=== PATIENT | female | born 1990 | race Caucasian/White ===

== ENCOUNTER 2017-03-27 19:52 | Emergency (ER) | payer OTHER ==
[2017-03-27 20:05] VITALS: BP 115/66; PULSE 85; TEMP 97.9; BMI 38.2
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
[2017-03-27 20:22] LABS: URINE APPEARANCE CLEAR; URINE BILIRUBIN NEGATIVE (NEGATIVE); URINE COLOR STRAW; URINE GLUCOSE (UA) NEGATIVE (NEGATIVE); URINE KETONE NEGATIVE (NEGATIVE); URINE LEUK ESTERASE NEGATIVE (NEGATIVE); URINE NITRITE NEGATIVE (NEGATIVE); URINE PROTEIN NEGATIVE (NEGATIVE); URINE UROBILINOGEN NEGATIVE E.U./dl (0.2-1.0)
[2017-03-27 20:28] LABS: URINE BLOOD 1+ (NEGATIVE)
[2017-03-27] MEDS ORDERED: KETOROLAC TROMETHAMINE 60 MG/2 ML VIAL IM ONE (20:30)
[2017-03-27 20:32] LABS: URINE BACTERIA RARE /hpf (NONE SEEN); URINE MUCUS RARE; URINE RBC 1 /hpf (0-3); URINE WBC 3 /hpf (3-5)
[2017-03-27] MEDS ORDERED: KETOROLAC TROMETHAMINE 60 MG/2 ML VIAL ONE (20:36)
== END 2017-03-27 20:55 | disposition home or self-care (01) ==
LOC: JERFT 19:52
PROC: 3E0233Z Introduction of Anti-inflammatory into Muscle, Percutaneous Approach (ICD-10-PCS; principal; 2017-03-27)
DX: M54.42 Lumbago with sciatica, left side (principal); G89.29 Other chronic pain; V89.2XXS Person injured in unspecified motor-vehicle accident, traffic, sequela; J30.2 Other seasonal allergic rhinitis
CPT/HCPCS: 81003; 81015; 84703; 99281-25

== ENCOUNTER 2018-12-27 08:09 | Emergency (ER) | payer OTHER ==
[2018-12-27 08:17] VITALS: BP 111/66; PULSE 86; TEMP 99.1; BMI 37.3
--- NOTE | 2018-12-27 08:57 | PDOC ---
History of Present Illness - General Chief Complaint: Respiratory Stated Complaint: COLD SYMPTOMS Time Seen by Provider: 12/27/18 08:30 History Source: Patient Exam Limitations: No Limitations - History of Present Illness Initial Comments: 12/27/18 08:57 28 year old female presents with flu-like symptoms x 5 days. Patient reports fever, sorethroat and bodyaches. Also states non productive coughing. Taking dayquil with no relief of symptoms. Timing/Duration: reports: week Severity: reports: moderate Modifying Factors: improves with: coughing, rest Associated Symptoms: reports: fever/chills, nasal congestion, nasal drainage, wheezing Aspirin Received prior to arrival: Yes: no aspirin today ASA Contraindications(Core Measure): No: Allergy Beta Doug Contraindications(Core Measure): Yes: Not Prescribed Beta Doug Given by EMS(Core Measure): No Beta Doug Taken at Home(Core Measure): No Beta Doug Not Indicated at this Time(Core Measure): No Past History - Travel Traveled outside of the country in the last 30 days: Yes Close contact w/someone who was outside of country & ill: No - Past Medical History Allergies/Adverse Reactions: Allergies Allergy/AdvReac Type Severity Reaction Status Date / Time minocycline Allergy Severe Itching Verified 12/27/18 08:17 Home Medications: Ambulatory Orders Albuterol 0.083% Nebulizer Eulalia [Ventolin 0.083% Nebulizer Soln -] 1 neb NEB Q6H #30 vial 08/22/16 Albuterol Sulfate Inhaler - [Ventolin Hfa Inhaler -] 1 - 2 inh PO QID #1 inhaler 08/22/16 Loratadine [Claritin] 10 mg PO DAILY #30 tablet 08/22/16 Diazepam [Valium] 5 mg PO ONCE PRN #5 tablet MDD 1 03/27/17 Naproxen [Naprosyn -] 500 mg PO BID #14 tablet 03/27/17 Albuterol Sulfate Inhaler - [Ventolin HFA Inhaler -] 1 - 2 inh PO QID #1 inhaler 12/27/18 Ibuprofen 600 mg PO QID #20 tablet 12/27/18 Phenylephrine/Dm/Acetaminop/GG [Mucinex Ihsh-Oyi-Yjelvorxcd Lq] 266 ml PO BID # 1 bottle 12/27/18 Asthma: Yes Cancer: No Cardiac Disorders: No COPD: No Diabetes: No HTN: No Seizures: No Thyroid Disease: No - Immunization History Immunization Up to Date: Yes - Suicide/Smoking/Psychosocial Hx Smoking History: Never smoked Have you smoked in the past 12 months: No Hx Alcohol Use: No Drug/Substance Use Hx: No Substance Use Type: None Hx Substance Use Treatment: No Respiratory Specific PMHX - Complaint Specific PMHX Angina: No Bronchitis: No Pneumonia: No Pulmonary Embolus: No TB (Tuberculosis): No Review of Systems - Review of Systems Able to Perform ROS?: Yes Is the patient limited Frisian proficient: No Constitutional: Yes: Chills, Fever, Malaise HEENTM: Yes: Nose Congestion, Throat Pain Cardiac (ROS): No: Chest Pain, Edema, Lightheadedness ABD/GI: Yes: Poor Appetite, Poor Fluid Intake. No: Nausea : No: Burning, Dysuria Integumentary: No: Bruising, Erythema Neurological: No: Headache, Numbness, Paresthesia, Tingling *Physical Exam - Vital Signs Last Vital Signs Temp Pulse Resp BP Pulse Ox 99.1 F 86 18 111/66 99 12/27/18 08:13 12/27/18 08:13 12/27/18 08:13 12/27/18 08:13 12/27/18 08:13 - Physical Exam General Appearance: Yes: Nourished, Appropriately Dressed. No: Apparent Distress HEENT: positive: ZEYNEP, TMs Normal, Pharyngeal Erythema, Tonsillar Erythema. negative: Tonsillar Exudate Neck: positive: Supple. negative: Lymphadenopathy (R), Lymphadenopathy (L) Respiratory/Chest: positive: Lungs Clear Cardiovascular: positive: Regular Rhythm, Regular Rate Extremity: positive: Normal Capillary Refill Neurologic: positive: field service coordinator II-XII NML intact, Fully Oriented, Alert Moderate Sedation - Procedure Monitoring Vital Signs: Procedure Monitoring Vital Signs Temperature 99.1 F 12/27/18 08:13 Pulse Rate 86 12/27/18 08:13 Respiratory Rate 18 12/27/18 08:13 Blood Pressure 111/66 12/27/18 08:13 O2 Sat by Pulse Oximetry (%) 99 12/27/18 08:13 Medical Decision Making - Medical Decision Making 12/27/18 09:05 28 year old female with history of asthma presents with flu-like symptoms x 5 days. Plan: throat culture ordered 12/27/18 09:07 12/27/18 09:44 -throat culture -afebrile rx: albuterol pump mucinex ibuprofen encouraged to follow up with pmd *DC/Admit/Observation/Transfer Diagnosis at time of Disposition: Flu-like symptoms - Discharge Dispostion Disposition: HOME Condition at time of disposition: Good Decision to Admit order: No - Prescriptions Prescriptions: Albuterol Sulfate Inhaler - [Ventolin HFA Inhaler -] 1 - 2 inh PO QID #1 inhaler Ibuprofen 600 mg PO QID #20 tablet Phenylephrine/Dm/Acetaminop/GG [Mucinex Mskk-Svu-Epsanllisb Lq] 266 ml PO BID # 1 bottle - Referrals - Patient Instructions Printed Discharge Instructions: DI for Viral Upper Respiratory Infection -- Adult Additional Instructions: Please drink plenty fluids Rest Take ibuprofen and acetaminophen for cough and fever Call primary physician for follow up appointent Return to ed for worsening symptoms - Post Discharge Activity Forms/Work/School Notes: Back to Work
== END 2018-12-27 09:59 | disposition home or self-care (01) ==
LOC: JERFT 08:09
DX: J11.1 Influenza due to unidentified influenza virus with other respiratory manifestations (principal); Z87.09 Personal history of other diseases of the respiratory system
CPT/HCPCS: 87070; 87880; 99281-25

== ENCOUNTER 2019-07-22 10:56 | Emergency (ER) | payer OTHER ==
[2019-07-22 11:12] VITALS: BP 109/66; PULSE 95; TEMP 98.1; BMI 36.6
--- NOTE | 2019-07-22 12:04 | PDOC ---
History of Present Illness - General Chief Complaint: Cold Symptoms Stated Complaint: ASTHMA FLARE UP Time Seen by Provider: 07/22/19 11:34 - History of Present Illness Initial Comments: 07/22/19 11:57 29 y/o F w/PMH of asthma presents for evaluation of cough x7 days as well as URI symptoms. She has been to urgent care x2 and her PCP x1 she is no Cough syrup, prednisone, Augmentin, as well as her usual inhaler. She is also on pseudofed she has also a negative flu and strep swabs 07/22/19 12:04 Past History - Past Medical History Allergies/Adverse Reactions: Allergies Allergy/AdvReac Type Severity Reaction Status Date / Time minocycline Allergy Severe Itching Verified 07/22/19 11:12 Home Medications: Ambulatory Orders Albuterol 0.083% Nebulizer Eulalia [Ventolin 0.083% Nebulizer Soln -] 1 neb NEB Q6H #30 vial 08/22/16 Albuterol Sulfate Inhaler - [Ventolin Hfa Inhaler -] 1 - 2 inh PO QID #1 inhaler 08/22/16 Loratadine [Claritin] 10 mg PO DAILY #30 tablet 08/22/16 Diazepam [Valium] 5 mg PO ONCE PRN #5 tablet MDD 1 03/27/17 Naproxen [Naprosyn -] 500 mg PO BID #14 tablet 03/27/17 Albuterol Sulfate Inhaler - [Ventolin HFA Inhaler -] 1 - 2 inh PO QID #1 inhaler 12/27/18 Ibuprofen 600 mg PO QID #20 tablet 12/27/18 Phenylephrine/Dm/Acetaminop/GG [Mucinex Dvpr-Rqh-Gtbpqmbnch Lq] 266 ml PO BID # 1 bottle 12/27/18 Penicillin V Potassium [Pen Vee K -] 500 mg PO QID #40 tablet 01/02/19 Asthma: Yes Cancer: No Cardiac Disorders: No COPD: No Diabetes: No HTN: No Seizures: No Thyroid Disease: No - Immunization History Immunization Up to Date: Yes - Suicide/Smoking/Psychosocial Hx Smoking History: Never smoked Have you smoked in the past 12 months: No Information on smoking cessation initiated: No Hx Alcohol Use: No Drug/Substance Use Hx: No Substance Use Type: None Hx Substance Use Treatment: No Review of Systems - Review of Systems Constitutional: No: Fever HEENTM: Yes: Nose Congestion Respiratory: Yes: Cough *Physical Exam - Vital Signs Last Vital Signs Temp Pulse Resp BP Pulse Ox 98.1 F 95 H 19 109/66 100 07/22/19 11:10 07/22/19 11:10 07/22/19 11:10 07/22/19 11:10 07/22/19 11:10 - Physical Exam General Appearance: Yes: Appropriately Dressed, Obese. No: Apparent Distress HEENT: positive: EOMI, Normal ENT Inspection, Normal Voice, TMs Normal, Pharynx Normal. negative: Pharyngeal Erythema, Tonsillar Exudate Neck: positive: Supple Respiratory/Chest: positive: Lungs Clear, Normal Breath Sounds. negative: Respiratory Distress, Accessory Muscle Use, Crackles, Rhonchi, Stridor, Wheezing Cardiovascular: positive: Regular Rate, S1, S2 Gastrointestinal/Abdominal: negative: Tender Musculoskeletal: positive: Normal Inspection Extremity: positive: Normal Inspection, Normal Range of Motion Integumentary: positive: Normal Color, Dry Neurologic: positive: phosphoric acid operator II-XII NML intact Medical Decision Making - Medical Decision Making 07/22/19 12:00 Pt is already on multiple medications. She most likley has a viral URI. She can continue her medications and follow up with her PCP for further evaluation and treatment options *DC/Admit/Observation/Transfer Diagnosis at time of Disposition: URI (upper respiratory infection) - Discharge Dispostion Disposition: HOME Condition at time of disposition: Stable Decision to Admit order: No - Referrals - Patient Instructions Printed Discharge Instructions: DI for Viral Upper Respiratory Infection -- Adult Additional Instructions: Continue with you medications and follow up with your primary care physician in 1-2 days for further evaluation and treatment options and return to the emergency room should symptoms worsen or go unresolved. - Post Discharge Activity
== END 2019-07-22 12:18 | disposition home or self-care (01) ==
LOC: JERFT 10:56
DX: J06.9 Acute upper respiratory infection, unspecified (principal); B97.89 Other viral agents as the cause of diseases classified elsewhere
CPT/HCPCS: 99281-25

== ENCOUNTER 2023-10-22 06:15 | Inpatient (IN) | payer OTHER ==
[2023-10-22] MEDS ORDERED: CITRIC ACID/SODIUM CITRATE 30 ML UNIT-DOSE CUP PO ONE (06:40)
[2023-10-22] MEDS ORDERED: ELECTROLYTE-148 SOLN 500 ML IV ONE (06:40)
[2023-10-22 06:59] VITALS: BMI 39.1
[2023-10-22] MEDS: ELECTROLYTE-148 SOLN 1,000 ML IV SCH (07:33)
[2023-10-22] MEDS ORDERED: OXYTOCIN 30 UNITS in 0.9% NS 30 UNIT/500 ML INFUS.BAG IVPB ONE (07:54)
[2023-10-22] MEDS ORDERED: morphine SULFATE/PF 1 MG/2 ML (2cc Syringe - QUVA) ONE (07:56)
[2023-10-22] MEDS ORDERED: PHENYLEPHRINE HCL 10 MG/1 ML SINGLE DOSE VIAL ONE (07:57)
[2023-10-22] MEDS ORDERED: FENTANYL CITRATE/PF 50 MCG/ML VIAL ONE (07:57)
[2023-10-22] MEDS ORDERED: ePHEDrine SULFATE 50 MG/1 ML AMPULE ONE (08:36)
[2023-10-22] MEDS ORDERED: ONDANSETRON 4 MG/2 ML VIAL ONE (08:36)
[2023-10-22] MEDS ORDERED: PROPOFOL 20 ML ONE (08:42)
[2023-10-22] MEDS ORDERED: SUCCINYLCHOLINE CHLORIDE 200 MG/10 ML SYRINGE ONE (08:42)
[2023-10-22] MEDS ORDERED: OXYTOCIN 10 UNITS/ML VIAL ONE (08:49)
[2023-10-22 09:41] LABS: CORD BASE EXCESS -2.7 mmol/L (0-2); CORD HCO3 24.2 mmHg (20-29); CORD PCO2 49.3 mmHg (30-78); CORD pH 7.309 (7.14-7.44)
[2023-10-22 09:46] LABS: CORD HCO3 23.5 mmHg (20-29); CORD PCO2 55.3 mmHg (30-78); CORD pH 7.246 (7.14-7.44)
[2023-10-22] MEDS ORDERED: HYDROXYCHLOROQUINE SO4 200 MG TABLET (FP) PO SCH (10:00)
[2023-10-22] MEDS ORDERED: METHYLERGONOVINE MALEATE 0.2 MG/1 ML AMP IM ONE (10:30)
[2023-10-22] MEDS: OXYTOCIN 20 UNITS in 0.9% NS 20 UNIT/1,000 ML INFUS.BAG IV SCH (10:30)
[2023-10-22] MEDS ORDERED: OXYTOCIN 20 UNITS in 0.9% NS 20 UNIT/1,000 ML INFUS.BAG IV ONE ×2 (10:33→13:01)
[2023-10-22] MEDS ORDERED: ACETAMINOPHEN INJECTION 100 ML IVPB ONE (10:56)
[2023-10-22] MEDS: ACETAMINOPHEN 1000 MG/100 ML BAG IVPB PRN ×2 (11:02→17:23)
[2023-10-22] MEDS: METHYLERGONOVINE MALEATE 0.2 MG/1 ML AMP IM PRN (12:02)
[2023-10-22] MEDS ORDERED: KETOROLAC TROMETHAMINE 30 MG/1 ML VIAL ONE (12:31)
[2023-10-22] MEDS ORDERED: KETOROLAC TROMETHAMINE 30 MG/1 ML VIAL IVPB ONE (13:15)
[2023-10-22] MEDS ORDERED: ONDANSETRON 4 MG/2 ML VIAL IVPUSH ONE (16:00)
[2023-10-22] MEDS: CEFAZOLIN SODIUM 2 GM in DEXTROSE 5%-WATER 100 ML IVPB SCH ×2 (16:12→23:30)
[2023-10-22] MEDS ORDERED: KETOROLAC TROMETHAMINE 60 MG/2 ML VIAL IM ONE (16:15)
[2023-10-22] MEDS ORDERED: oxyCODONE HCL 5 MG TABLET PO PRN ×2 (21:32)
[2023-10-23] MEDS: METHYLERGONOVINE MALEATE 0.2 MG/1 ML AMP IM PRN ×2 (00:25→04:32)
[2023-10-23] MEDS: OXYTOCIN 20 UNITS in 0.9% NS 20 UNIT/1,000 ML INFUS.BAG IV SCH ×2 (00:26→10:08)
[2023-10-23] MEDS ORDERED: KETOROLAC TROMETHAMINE 60 MG/2 ML VIAL IM ONE (00:30)
[2023-10-23] MEDS: SIMETHICONE 80 MG TAB.CHEW (FP) PO PRN ×4 (00:56→22:43)
[2023-10-23 07:44] LABS: BASO % 0.3 % (0-2.0); EOS % 0.7 % (0-4.5); HEMATOCRIT 29.3 % (32.4-45.2); HEMOGLOBIN 9.9 GM/dL (10.7-15.3); LYMPH % 20.9 % (8-40); MCH 31.8 pg (25.7-33.7); MCHC 33.6 g/dl (32.0-36.0); MEAN CELL VOLUME 94.5 fl (80-96); MEAN PLT VOLUME 7.7 fl (7.5-11.1); MONO % 8.9 % (3.8-10.2); NEUT % 69.2 % (42.8-82.8); PLATELET COUNT 238 10^3/uL (134-434); RDW 14.4 % (11.6-15.6); WHITE BLOOD COUNT 14.3 K/mm3 (4.0-10.0)
[2023-10-23] MEDS: ACETAMINOPHEN 1000 MG/100 ML BAG IVPB PRN (08:14)
[2023-10-23] MEDS ORDERED: CEFAZOLIN SODIUM 2 GM VIAL ONE (08:23)
[2023-10-23] MEDS: CEFAZOLIN SODIUM 2 GM in DEXTROSE 5%-WATER 100 ML IVPB SCH (08:34)
[2023-10-23] MEDS: ELECTROLYTE-148 SOLN 1,000 ML IV SCH (08:41)
[2023-10-23] MEDS ORDERED: BISACODYL 10 MG SUPP.RECT RC PRN (09:32)
[2023-10-23] MEDS: ENOXAPARIN NA (PORCINE) 40 MG/0.4 ML DISP.SYRIN SQ SCH (10:08)
[2023-10-23] MEDS: ACETAMINOPHEN 325 MG TABLET (FP) PO PRN (15:10)
[2023-10-23] MEDS: IBUPROFEN 600 MG TABLET (FP) PO PRN ×2 (18:42→22:43)
[2023-10-23] MEDS: HYDROXYCHLOROQUINE SO4 200 MG TABLET (FP) PO SCH (21:19)
[2023-10-23] MEDS: FERROUS SO4 325 MG TABLET (FP) PO SCH (21:19)
[2023-10-24 01:22] LABS: EPI CELLS 15 /uL (0-25.1); HYALINE CASTS 0 /uL (0-3.1); PH,URINE 5.5 (5.0-8.0); URINE APPEARANCE CLOUDY; URINE BACTERIA 1 /uL (0-1359); URINE BILIRUBIN NEGATIVE (NEGATIVE); URINE COLOR RED; URINE GLUCOSE (UA) NEGATIVE (NEGATIVE); URINE KETONE NEGATIVE (NEGATIVE); URINE LEUK ESTERASE TRACE (NEGATIVE); URINE NITRITE NEGATIVE (NEGATIVE); URINE PROTEIN 1+ (NEGATIVE); URINE RBC 10888 /uL (0-23.9); URINE UROBILINOGEN 0.2 mg/dL (0.2-1.0); URINE WBC 47 /uL (0-25.8)
[2023-10-24] MEDS: SIMETHICONE 80 MG TAB.CHEW (FP) PO PRN ×3 (03:08→17:45)
[2023-10-24] MEDS: IBUPROFEN 600 MG TABLET (FP) PO PRN ×4 (03:10→17:45)
[2023-10-24 08:08] LABS: HEMOGLOBIN 8.5 GM/dL (10.7-15.3); MCH 30.9 pg (25.7-33.7); MCHC 32.7 g/dl (32.0-36.0); MEAN CELL VOLUME 94.4 fl (80-96); PLATELET COUNT 245 10^3/uL (134-434); RBC 2.75 M/mm3 (3.60-5.2); RDW 14.7 % (11.6-15.6)
[2023-10-24] MEDS: FERROUS SO4 325 MG TABLET (FP) PO SCH ×2 (09:51→21:05)
[2023-10-24] MEDS: ENOXAPARIN NA (PORCINE) 40 MG/0.4 ML DISP.SYRIN SQ SCH (14:26)
[2023-10-24] MEDS: ACETAMINOPHEN 325 MG TABLET (FP) PO PRN (20:11)
[2023-10-24] MEDS: HYDROXYCHLOROQUINE SO4 200 MG TABLET (FP) PO SCH (20:49)
[2023-10-24 22:30] VITALS: RESP 18
[2023-10-25] MEDS: IBUPROFEN 600 MG TABLET (FP) PO PRN ×3 (00:23→10:28)
[2023-10-25] MEDS ORDERED: SENNOSIDES/DOCUSATE COMBO (SENNA PLUS) TABLET (UD) PO PRN (00:34)
[2023-10-25] MEDS: SIMETHICONE 80 MG TAB.CHEW (FP) PO PRN ×3 (00:43→10:28)
[2023-10-25] MEDS: ACETAMINOPHEN 325 MG TABLET (FP) PO PRN (08:20)
[2023-10-25 08:43] LABS: BASO % 0.5 % (0-2.0); EOS % 1.2 % (0-4.5); HEMATOCRIT 26.1 % (32.4-45.2); HEMOGLOBIN 8.8 GM/dL (10.7-15.3); LYMPH % 31.4 % (8-40); MCH 32.2 pg (25.7-33.7); MCHC 33.9 g/dl (32.0-36.0); MEAN CELL VOLUME 95.1 fl (80-96); MEAN PLT VOLUME 7.2 fl (7.5-11.1); MONO % 6.7 % (3.8-10.2); NEUT % 60.2 % (42.8-82.8); PLATELET COUNT 247 10^3/uL (134-434); RBC 2.74 M/mm3 (3.60-5.2); WHITE BLOOD COUNT 10.1 K/mm3 (4.0-10.0)
[2023-10-25] MEDS: FERROUS SO4 325 MG TABLET (FP) PO SCH (10:27)
[2023-10-25] MEDS: ENOXAPARIN NA (PORCINE) 40 MG/0.4 ML DISP.SYRIN SQ SCH (10:35)
[2023-10-25 11:02] VITALS: BP 112/61; PULSE 79; TEMP 97.9
== END 2023-10-25 14:30 | disposition home or self-care (01) | DRG 540 ==
LOC: JLDR 06:15 → J3W 14:00
PROVIDERS: ADMIT Obstetrics & Gynecology; ATTEND Obstetrics & Gynecology
PROC: 10D00Z1 Extraction of Products of Conception, Low, Open Approach (ICD-10-PCS; principal; 2023-10-22)
PROC: 0DNW0ZZ Release Peritoneum, Open Approach (ICD-10-PCS; 2023-10-22)
DX: O34.211 Maternal care for low transverse scar from previous cesarean delivery (principal); N73.6 Female pelvic peritoneal adhesions (postinfective); O90.81 Anemia of the puerperium; M06.9 Rheumatoid arthritis, unspecified; Z3A.39 39 weeks gestation of pregnancy; Z37.0 Single live birth
CPT/HCPCS: 36415; 36600; 80048; 81003; 82803; 85025; 85027; 85610; 85730; 86780; 86850; 86900; 86901; 87086; 94010